=== PATIENT | female | born 1975 | race Caucasian/White ===

== ENCOUNTER 2017-05-22 01:06 | Emergency (ER) | payer OTHER ==
[2017-05-22 02:30] LABS: BASO % 0.3 % (0.0-1.0); HEMATOCRIT 41.6 % (36.0-47.0); HEMOGLOBIN 14.5 g/dl (12.0-16.0); IMMATURE GRANULOCYTE % 0.3 % (0-3.0); LYMPH # 1.5 10^3/uL (1.5-4.5); LYMPH % 13.8 % (24.0-44.0); MEAN CORPUSCULAR HGB CONC 34.9 g/dl (32.0-36.5); MEAN CORPUSCULAR VOLUME 86.1 fl (80.0-96.0); MONO # 0.8 10^3/uL (0.0-0.8); MONO % 7.7 % (0.0-5.0); NEUTROPHILS # 8.5 10^3/uL (1.8-7.7); NEUTROPHILS % 77.9 % (36.0-66.0); PLATELET COUNT, AUTOMATED 289 10^3/uL (150-450); RED BLOOD COUNT 4.83 10^6/uL (4.00-5.40); RED CELL DISTRIBUTION WIDTH 14.5 % (11.5-14.5); WHITE BLOOD COUNT 10.9 10^3/uL (4.0-10.0)
[2017-05-22] MEDS: ONDANSETRON 4MG/2ML VIAL (J2405) IV (02:35)
[2017-05-22] MEDS: MORPHINE 2 MG/ML 1ML SYRINGE (J2270) IV (02:36)
[2017-05-22 02:58] LABS: ALBUMIN 3.4 GM/DL (3.2-5.2); ALBUMIN/GLOBULIN RATIO 0.77 (1.00-1.93); ALKALINE PHOSPHATASE 109 U/L (45-117); ALT/SGPT 26 U/L (12-78); ANION GAP 13 MEQ/L (8-16); AST/SGOT 18 U/L (7-37); BILIRUBIN,DIRECT 0.3 MG/DL (0.0-0.2); BILIRUBIN,TOTAL 0.8 MG/DL (0.2-1.0); BLOOD UREA NITROGEN 8 MG/DL (7-18); CALCIUM LEVEL 8.4 MG/DL (8.5-10.1); CARBON DIOXIDE LEVEL 25 MEQ/L (21-32); CHLORIDE LEVEL 98 MEQ/L (98-107); CREATININE FOR GFR 0.56 MG/DL (0.55-1.30); GLOMERULAR FILTRATION RATE > 60.0 (>60); GLUCOSE, FASTING 124 MG/DL (70-100); LIPASE 82 U/L (73-393); POTASSIUM SERUM 2.9 MEQ/L (3.5-5.1); SODIUM LEVEL 136 MEQ/L (136-145); TOTAL PROTEIN 7.8 GM/DL (6.4-8.2)
[2017-05-22] MEDS: NS 1,000 ML IV (03:02)
[2017-05-22] MEDS ORDERED: KCL 20MEQ IN 100ML SWI (KRUN) 20 MEQ in APPROPRIATE DILUENT 1 EA IV (03:15)
[2017-05-22] MEDS: POTASSIUM CHL PWD 20 MEQ PACKET PO (03:40)
[2017-05-22] MEDS: KCL 10MEQ IN 100ML SWI (KRUN) 10 MEQ in APPROPRIATE DILUENT 1 EA IV ×2 (03:40→04:37)
[2017-05-22] MEDS: POTASSIUM CHLORIDE 10 MEQ SR TABLET PO (05:13)
== END 2017-05-22 05:17 | disposition home or self-care (01) ==
LOC: M ED 01:06
DX: K52.9 Noninfective gastroenteritis and colitis, unspecified (principal); E87.6 Hypokalemia; I10 Essential (primary) hypertension; F32.9 Major depressive disorder, single episode, unspecified; F41.9 Anxiety disorder, unspecified; Z87.891 Personal history of nicotine dependence; Z79.899 Other long term (current) drug therapy
CPT/HCPCS: J2405

== ENCOUNTER 2017-06-06 09:30 | Emergency (ER) | payer OTHER ==
[2017-06-06] MEDS: NS 1,000 ML IV (10:18)
[2017-06-06 10:23] LABS: BASO % 0.3 % (0.0-1.0); HEMATOCRIT 45.2 % (36.0-47.0); HEMOGLOBIN 15.5 g/dl (12.0-16.0); IMMATURE GRANULOCYTE % 0.3 % (0-3.0); LYMPH # 1.7 10^3/uL (1.5-4.5); LYMPH % 17.7 % (24.0-44.0); MEAN CORPUSCULAR HEMOGLOBIN 30.2 pg (27.0-33.0); MEAN CORPUSCULAR HGB CONC 34.3 g/dl (32.0-36.5); MEAN CORPUSCULAR VOLUME 87.9 fl (80.0-96.0); MONO # 0.3 10^3/uL (0.0-0.8); MONO % 3.3 % (0.0-5.0); NEUTROPHILS # 7.5 10^3/uL (1.8-7.7); NEUTROPHILS % 78.4 % (36.0-66.0); PLATELET COUNT, AUTOMATED 391 10^3/uL (150-450); RED BLOOD COUNT 5.14 10^6/uL (4.00-5.40); RED CELL DISTRIBUTION WIDTH 14.6 % (11.5-14.5); WHITE BLOOD COUNT 9.6 10^3/uL (4.0-10.0)
[2017-06-06 10:55] LABS: CONTROL LINE HPYORI INT CTR LINE PRESENT; H PYLORI QUALITATIVE IgG NEGATIVE (NEGATIVE)
[2017-06-06 10:58] LABS: ALBUMIN/GLOBULIN RATIO 0.89 (1.00-1.93); ALKALINE PHOSPHATASE 95 U/L (45-117); ALT/SGPT 39 U/L (12-78); ANION GAP 8 MEQ/L (8-16); AST/SGOT 21 U/L (7-37); BILIRUBIN,TOTAL 0.6 MG/DL (0.2-1.0); BLOOD UREA NITROGEN 10 MG/DL (7-18); CALCIUM LEVEL 9.7 MG/DL (8.5-10.1); CARBON DIOXIDE LEVEL 29 MEQ/L (21-32); CHLORIDE LEVEL 101 MEQ/L (98-107); CREATININE FOR GFR 0.66 MG/DL (0.55-1.30); GLOMERULAR FILTRATION RATE > 60.0 (>60); GLUCOSE, FASTING 140 MG/DL (70-100); POTASSIUM SERUM 3.4 MEQ/L (3.5-5.1); SODIUM LEVEL 138 MEQ/L (136-145); TOTAL PROTEIN 8.5 GM/DL (6.4-8.2)
[2017-06-06] MEDS ORDERED: ISOVUE-370 76% 100ML VIAL (Q9967) As Ordered (11:14)
[2017-06-06] MEDS: ONDANSETRON 4MG/2ML VIAL (J2405) IV (11:21)
[2017-06-06 11:25] LABS: LIPASE 130 U/L (73-393)
[2017-06-09 00:06] LABS: H PYLORI SERUM QUANT IGA <9.0 units (0.0-8.9)
[2017-06-09 00:06] LABS: H PYLORI SERUM QUANT IGM <9.0 units (0.0-8.9)
== END 2017-06-06 12:26 | disposition home or self-care (01) ==
LOC: M ED 09:30
DX: K52.9 Noninfective gastroenteritis and colitis, unspecified (principal); F41.9 Anxiety disorder, unspecified; F33.9 Major depressive disorder, recurrent, unspecified; Z79.899 Other long term (current) drug therapy; Z98.890 Other specified postprocedural states
CPT/HCPCS: J2405

== ENCOUNTER 2018-11-26 08:30 | Emergency (ER) | payer OTHER ==
[~2018-11-26] VITALS: Ht 157.5 cm; Wt 102.0 kg
[~2018-11-26 08:30] MED LIST: AMOX500C PO; COLA50CA3 PO; IBUP80TA PO; LEXA1TAB2 PO; PERC7.5T12 PO; PRENTAB74 PO; XANA0.5T PO; ZOFR4TAB14 PO
[2018-11-26] MEDS ORDERED: OMEP-218 (08:35)
[2018-11-26] MEDS ORDERED: SULF1TAB93 (08:35)
[2018-11-26] MEDS ORDERED: KETOROLAC 30 MG/ML VIAL (J1885) IV ONE (09:30)
[2018-11-26] MEDS ORDERED: NS 1,000 ML IV ONE (09:30)
[2018-11-26 09:43] LABS: BASO % 0.2 % (0.0-1.0); EOS % 0.1 % (0.0-3.0); HEMATOCRIT 47.4 % (36.0-47.0); LYMPH # 2.3 10^3/uL (1.5-4.5); LYMPH % 17.4 % (24.0-44.0); MEAN CORPUSCULAR HEMOGLOBIN 31.1 pg (27.0-33.0); MEAN CORPUSCULAR HGB CONC 33.8 g/dl (32.0-36.5); MONO # 0.7 10^3/uL (0.0-0.8); NEUTROPHILS # 10.3 10^3/uL (1.8-7.7); PLATELET COUNT, AUTOMATED 375 10^3/uL (150-450); RED BLOOD COUNT 5.15 10^6/uL (4.00-5.40); WHITE BLOOD COUNT 13.4 10^3/uL (4.0-10.0)
[2018-11-26 09:57] LABS: BLOOD UREA NITROGEN 8 MG/DL (7-18); C REACTIVE PROTEIN QUANTITATIV 0.82 MG/DL (0.00-0.30); CALCIUM LEVEL 8.9 MG/DL (8.5-10.1); CARBON DIOXIDE LEVEL 25 MEQ/L (21-32); CHLORIDE LEVEL 104 MEQ/L (98-107); CREATININE FOR GFR 0.64 MG/DL (0.55-1.30); GLOMERULAR FILTRATION RATE > 60.0 (>58); GLUCOSE, FASTING 111 MG/DL (70-100); POTASSIUM SERUM 3.2 MEQ/L (3.5-5.1); SODIUM LEVEL 138 MEQ/L (136-145)
[2018-11-26 10:06] LABS: ERYTHROCYTE SEDIMENTATION RATE 15 mm/hr (0-20)
[2018-11-26] MEDS ORDERED: ACETAMINOPHEN 500 MG TAB PO ONE (10:15)
[2018-11-26] MEDS ORDERED: KETO10TAB PO (11:13)
[2018-11-26 11:15] VITALS: BP 170/80
[2018-11-26] MEDS ORDERED: CLIN1GEL22 TOP (11:18)
== END 2018-11-26 11:22 | disposition home or self-care (01) ==
LOC: M ED 08:30
DX: L02.412 Cutaneous abscess of left axilla (principal); L03.112 Cellulitis of left axilla; F41.9 Anxiety disorder, unspecified; Z79.899 Other long term (current) drug therapy; Z79.2 Long term (current) use of antibiotics
CPT/HCPCS: 80048; 83605; 85025; 85652; 86140; 96374; 99284; J1885

== ENCOUNTER 2019-10-02 11:37 | Emergency (ER) | payer OTHER ==
[~2019-10-02] VITALS: Ht 154.9 cm; Wt 116.4 kg
[~2019-10-02 11:37] MED LIST changes: +CLIN1GEL22 TOP; +KETO10TAB PO; +OMEP-218; +SULF1TAB93
[2019-10-02] MEDS ORDERED: KETOROLAC TROMETHAMINE 10 MG TAB PO ONE (12:45)
--- NOTE | 2019-10-02 13:19 | REP ---
Clinical: Nontraumatic left shoulder pain . Technique: Internal rotation, external rotation, and Y view left shoulder . Findings: No acute fracture or dislocation. The acromioclavicular and glenohumeral joints are intact. Sub acromial space is normal. Surrounding soft tissues are unremarkable. Impression: Age-appropriate left shoulder radiographs. If the patient remains symptomatic consider follow-up outpatient MRI for further investigation. Electronically Signed by Jalil Cardozo MD 10/02/2019 01:11 P
[2019-10-02 13:25] VITALS: BP 144/70
--- NOTE | 2019-10-02 16:54 | ECGEPIP ---
[facility] - ED Test Date: 2019-10-02 Pat Name: KATHY JACKSON Department: Room: - Gender: Female [employer]: kg : 1975 Requested By: Rula Hong Order Number: [id number] Reading MD: Rula Hong Measurements Intervals [place] Rate: 85 P: 60 NC: 174 QRS: 15 QRSD: 89 T: 30 QT: 353 QTc: 422 Interpretive Statements SINUS RHYTHM NSTTW abnormalities No prior Electronically Signed on 10-02-2019 16:54:18 EDT by Rula Hong
== END 2019-10-02 13:25 | disposition home or self-care (01) ==
LOC: M ED 11:37
DX: M25.512 Pain in left shoulder (principal); I10 Essential (primary) hypertension; F41.9 Anxiety disorder, unspecified; F32.9 Major depressive disorder, single episode, unspecified; Z79.899 Other long term (current) drug therapy

== ENCOUNTER 2020-03-01 09:43 | Emergency (ER) | payer OTHER ==
[~2020-03-01] VITALS: Ht 154.9 cm; Wt 105.2 kg
[2020-03-01] MEDS ORDERED: AMOX875T2 (10:02)
[2020-03-01] MEDS ORDERED: PERI12LIQ (10:02)
[2020-03-01] MEDS ORDERED: CLIN300C6 (10:02)
[2020-03-01] MEDS ORDERED: IBUP80TA (10:02)
[2020-03-01] MEDS ORDERED: HYDR-3716 (10:02)
[2020-03-01 11:33] LABS: BASO # 0.1 10^3/uL (0.0-0.2); BASO % 0.4 % (0.0-1.0); EOS # 0.3 10^3/uL (0.0-0.5); EOS % 2.5 % (0.0-3.0); HEMATOCRIT 41.8 % (36.0-47.0); HEMOGLOBIN 13.4 g/dl (12.0-15.5); LYMPH # 3.7 10^3/uL (1.5-5.0); LYMPH % 31.6 % (24.0-44.0); MEAN CORPUSCULAR HEMOGLOBIN 31.5 pg (27.0-33.0); MEAN CORPUSCULAR HGB CONC 32.1 g/dl (32.0-36.5); MEAN CORPUSCULAR VOLUME 98.1 fl (80.0-96.0); MONO # 0.6 10^3/uL (0.0-0.8); MONO % 5.3 % (0.0-5.0); NEUTROPHILS # 6.9 10^3/uL (1.5-8.5); NEUTROPHILS % 59.8 % (36.0-66.0); PLATELET COUNT, AUTOMATED 318 10^3/uL (150-450); RED BLOOD COUNT 4.26 10^6/uL (4.00-5.40); WHITE BLOOD COUNT 11.6 10^3/uL (4.0-10.0)
[2020-03-01 11:51] LABS: HCG, SERUM QUALITATIVE NEGATIVE (NEGATIVE)
[2020-03-01] MEDS ORDERED: KETOROLAC 30 MG/ML 1ML VIAL IV ONE (12:00)
[2020-03-01] MEDS ORDERED: ISOVUE-370 76% 100ML VIAL As Ordered ONE (12:07)
[2020-03-01 12:12] LABS: ERYTHROCYTE SEDIMENTATION RATE 13 mm/hr (0-20)
[2020-03-01 13:08] LABS: ALBUMIN 2.7 GM/DL (3.2-5.2); ALT/SGPT 17 U/L (12-78); BILIRUBIN,DIRECT < 0.1 MG/DL (0.0-0.2); BILIRUBIN,TOTAL 0.2 MG/DL (0.2-1.0); BLOOD UREA NITROGEN 18 MG/DL (7-18); C REACTIVE PROTEIN QUANTITATIV 1.76 MG/DL (0.00-0.30); CALCIUM LEVEL 8.1 MG/DL (8.5-10.1); CARBON DIOXIDE LEVEL 29 MEQ/L (21-32); CHLORIDE LEVEL 108 MEQ/L (98-107); CREATININE FOR GFR 0.55 MG/DL (0.55-1.30); GLOMERULAR FILTRATION RATE > 60.0 (>58); GLUCOSE, FASTING 75 MG/DL (70-100); POTASSIUM SERUM 3.8 MEQ/L (3.5-5.1); SODIUM LEVEL 141 MEQ/L (136-145); TOTAL PROTEIN 5.7 GM/DL (6.4-8.2)
--- NOTE | 2020-03-01 13:28 | REP ---
INDICATION: swelling left side of face. COMPARISON: None. TECHNIQUE: Axial noncontrast images from the skull base to the thoracic inlet with coronal and sagittal reformations. FINDINGS: Edematous changes with inflammatory stranding and forming phlegmon is identified overlying the left mandibular body with mild reactive cervical adenopathy. Remainder of the examination appears normal. The osseous structures are intact. The sinuses are well aerated and clear. The bilateral orbits are symmetric and normal. The nasopharynx, oropharynx and hypopharynx appear normal. Retropharyngeal and parapharyngeal spaces are normal. Airway is midline and patent without narrowing or mass/mass effect. IMPRESSION: Infectious/inflammatory swelling with fat stranding and phlegmonous change overlying the left mandibular body. No subcutaneous emphysema. <Electronically signed by Jalil Cardozo > 03/01/20 [id number]
[2020-03-01 13:44] VITALS: BP 130/60
[2020-03-01] MEDS ORDERED: ACETAMINOPH W/CODEINE #3 TAB UD PO ONE (14:00)
[2020-03-01] MEDS ORDERED: ACET1TAB16 PO (14:06)
== END 2020-03-01 14:14 | disposition home or self-care (01) ==
LOC: M ED 09:43
DX: R68.84 Jaw pain (principal); R22.0 Localized swelling, mass and lump, head; I10 Essential (primary) hypertension; F41.9 Anxiety disorder, unspecified; Z79.899 Other long term (current) drug therapy
CPT/HCPCS: 36415; 70491; 80048; 80076; 83605; 84703; 85025; 85652; 86140; 87040; 96374; 99283; J1885; Q9967

== ENCOUNTER → 2020-03-06 | Outpatient (REF) | payer OTHER ==
[~2020-03-06] MED LIST changes: +ACET1TAB16 PO; +AMOX875T2; +CLIN300C6; +HYDR-3716; +IBUP80TA; +PERI12LIQ
== END ==
LOC: M LAB REF 17:23
PROVIDERS: ATTEND Dermatology
DX: L02.91 Cutaneous abscess, unspecified (principal)

== ENCOUNTER 2020-06-13 13:21 | Emergency (ER) | payer OTHER ==
[~2020-06-13] VITALS: Ht 154.9 cm; Wt 104.9 kg
[2020-06-13] MEDS ORDERED: CEPH500C (14:08)
[2020-06-13] MEDS ORDERED: TOBRSUS8 (14:08)
[2020-06-13] MEDS ORDERED: NS 500 ML IV ONE (14:50)
[2020-06-13] MEDS ORDERED: AMPICILLIN SOD/SULBACTAM SOD 3 GM in D5W MINI-BAG PLUS 100 ML IV ONE (14:50)
[2020-06-13] MEDS ORDERED: KETOROLAC 30 MG/ML 1ML VIAL IV ONE (14:55)
[2020-06-13] MEDS ORDERED: TETRACAINE 0.5% OPHTH SOLN 4ML OS ONE (14:55)
[2020-06-13] MEDS ORDERED: FLUORESCEIN OPHTH 1 MG STRIP OS ONE (14:55)
[2020-06-13] MEDS ORDERED: ISOVUE-370 76% 100ML VIAL As Ordered ONE (15:17)
[2020-06-13 15:22] LABS: BASO # 0.1 10^3/uL (0.0-0.2); BASO % 0.5 % (0.0-1.0); EOS # 0.1 10^3/uL (0.0-0.5); EOS % 0.8 % (0.0-3.0); HEMATOCRIT 41.3 % (36.0-47.0); HEMOGLOBIN 13.4 g/dl (12.0-15.5); LYMPH # 3.2 10^3/uL (1.5-5.0); LYMPH % 29.8 % (24.0-44.0); MEAN CORPUSCULAR HEMOGLOBIN 31.5 pg (27.0-33.0); MEAN CORPUSCULAR HGB CONC 32.4 g/dl (32.0-36.5); MEAN CORPUSCULAR VOLUME 96.9 fl (80.0-96.0); MONO # 0.7 10^3/uL (0.0-0.8); MONO % 6.3 % (2.0-8.0); NEUTROPHILS # 6.6 10^3/uL (1.5-8.5); NEUTROPHILS % 62.3 % (36.0-66.0); PLATELET COUNT, AUTOMATED 369 10^3/uL (150-450); RED BLOOD COUNT 4.26 10^6/uL (4.00-5.40); WHITE BLOOD COUNT 10.6 10^3/uL (4.0-10.0)
--- NOTE | 2020-06-13 15:42 | REP ---
INDICATION: swelling supra/infra orbital, drainage, chemosis, severe antonina. COMPARISON: None. TECHNIQUE: Axial contrast-enhanced images through the orbits with coronal and sagittal reformations using 100 cc Isovue 370 intravenous contrast material. FINDINGS: Left periorbital subcutaneous soft tissue swelling/infiltration is appreciated. No drainable collection. There is no intraorbital/intraconal extension of the inflammatory changes. The intraorbital contents including globe, orbital musculature, neurovascular bundle and fat appear normal. IMPRESSION: Left periorbital soft tissue swelling suggesting cellulitis. No orbital cellulitis. No drainable collection or abscess. The globe and intraconal contents are intact and normal. <Electronically signed by Jalil Cardozo > 06/13/20 [id number]
[2020-06-13 15:49] LABS: BLOOD UREA NITROGEN 13 MG/DL (7-18); C REACTIVE PROTEIN QUANTITATIV 0.84 MG/DL (0.00-0.30); CALCIUM LEVEL 8.9 MG/DL (8.5-10.1); CARBON DIOXIDE LEVEL 25 MEQ/L (21-32); CHLORIDE LEVEL 108 MEQ/L (98-107); GLOMERULAR FILTRATION RATE > 60.0 (>58); GLUCOSE, FASTING 77 MG/DL (70-100); POTASSIUM SERUM 4.2 MEQ/L (3.5-5.1); SODIUM LEVEL 138 MEQ/L (136-145)
[2020-06-13 15:57] LABS: ERYTHROCYTE SEDIMENTATION RATE 20 mm/hr (0-20)
[2020-06-13 16:10] VITALS: BP 140/70
[2020-06-13] MEDS ORDERED: KETO10TAB PO (16:17)
== END 2020-06-13 16:25 | disposition home or self-care (01) ==
LOC: M ED 13:21
DX: L03.213 Periorbital cellulitis (principal); I10 Essential (primary) hypertension; Z79.899 Other long term (current) drug therapy
CPT/HCPCS: 70481; 80047; 80048; 85025; 85652; 86140; 96365; 96375; 99284; J1885; Q9967

== ENCOUNTER 2021-08-28 08:34 | Emergency (ER) | payer OTHER ==
[~2021-08-28] VITALS: Ht 152.4 cm; Wt 104.5 kg
[~2021-08-28 08:34] MED LIST changes: -ACET1TAB16 PO; +ACET300T48 PO; +BACTDSTA; +CEPH500C; +CLIN-250; -CLIN300C6; +OMEP-173; -OMEP-218; -SULF1TAB93; +TOBRSUS8
[2021-08-28 10:11] LABS: BASO % 0.4 % (0.0-1.0); EOS % 0.4 % (0.0-3.0); HEMATOCRIT 41.5 % (36.0-47.0); HEMOGLOBIN 13.9 g/dl (12.0-15.5); LYMPH # 2.5 10^3/uL (1.5-5.0); LYMPH % 25.7 % (24.0-44.0); MEAN CORPUSCULAR HEMOGLOBIN 32.3 pg (27.0-33.0); MEAN CORPUSCULAR HGB CONC 33.5 g/dl (32.0-36.5); MEAN CORPUSCULAR VOLUME 96.3 fl (80.0-96.0); MONO # 0.4 10^3/uL (0.0-0.8); NEUTROPHILS # 6.7 10^3/uL (1.5-8.5); NEUTROPHILS % 69.2 % (36.0-66.0); PLATELET COUNT, AUTOMATED 391 10^3/uL (150-450); RED BLOOD COUNT 4.31 10^6/uL (4.00-5.40); WHITE BLOOD COUNT 9.7 10^3/uL (4.0-10.0)
[2021-08-28 10:29] LABS: ERYTHROCYTE SEDIMENTATION RATE 18 mm/hr (0-20)
[2021-08-28 10:32] LABS: BLOOD UREA NITROGEN 11 MG/DL (7-18); C REACTIVE PROTEIN QUANTITATIV 0.37 MG/DL (0.00-0.30); CALCIUM LEVEL 8.6 MG/DL (8.5-10.1); CARBON DIOXIDE LEVEL 28 MEQ/L (21-32); CHLORIDE LEVEL 106 MEQ/L (98-107); CREATININE FOR GFR 0.56 MG/DL (0.55-1.30); GLOMERULAR FILTRATION RATE > 60.0 (>58); GLUCOSE, FASTING 92 MG/DL (70-100); POTASSIUM SERUM 3.5 MEQ/L (3.5-5.1); SODIUM LEVEL 137 MEQ/L (136-145)
[2021-08-28 10:51] LABS: HCG, SERUM QUALITATIVE NEGATIVE (NEGATIVE)
[2021-08-28] MEDS ORDERED: dexameTHASONE 20MG/5ML VIAL (J1100 PER 1MG) IV ONE (11:15)
[2021-08-28] MEDS ORDERED: CLINDAMYCIN 900 MG in IV 1 EA IV ONE (11:15)
[2021-08-28] MEDS ORDERED: NS 1,000 ML IV ONE (11:15)
[2021-08-28] MEDS ORDERED: ISOVUE-370 76% 100ML VIAL As Ordered ONE (11:19)
[2021-08-28] MEDS ORDERED: CLEO300C2 PO (12:43)
[2021-08-28] MEDS ORDERED: ERYT5OIN25 OD (12:44)
[2021-08-28 12:55] VITALS: BP 160/90
== END 2021-08-28 12:57 | disposition home or self-care (01) ==
LOC: M ED 08:34
DX: H00.032 Abscess of right lower eyelid (principal); I10 Essential (primary) hypertension; E78.5 Hyperlipidemia, unspecified; F41.9 Anxiety disorder, unspecified; Z79.899 Other long term (current) drug therapy
CPT/HCPCS: 70487; 80048; 84703; 85025; 85652; 86140; 96365; 96375; 99284; J1100; Q9967

== ENCOUNTER 2021-10-15 07:34 | Emergency (ER) | payer OTHER ==
[~2021-10-15] VITALS: Ht 152.4 cm; Wt 113.8 kg
[~2021-10-15 07:34] MED LIST changes: +CLEO300C2 PO; +ERYT5OIN25 OD
[2021-10-15] MEDS ORDERED: LEXA1TAB2 (07:45)
[2021-10-15] MEDS ORDERED: GABA-1171 (07:45)
[2021-10-15] MEDS ORDERED: LISI10TA22 (07:45)
[2021-10-15] MEDS ORDERED: BACL10TA2 (07:45)
[2021-10-15] MEDS ORDERED: ALPR0.25 (07:45)
[2021-10-15] MEDS ORDERED: predniSONE 20 MG TAB PO ONE (08:05)
[2021-10-15] MEDS ORDERED: PRED10TA2 PO (08:38)
[2021-10-15 08:47] VITALS: BP 130/70
== END 2021-10-15 08:50 | disposition home or self-care (01) ==
LOC: M ED 07:34
DX: M25.511 Pain in right shoulder (principal); I10 Essential (primary) hypertension; Z79.899 Other long term (current) drug therapy
CPT/HCPCS: 73030; 99283; J7512

== ENCOUNTER 2021-12-07 07:45 | Emergency (ER) | payer OTHER ==
[~2021-12-07] VITALS: Ht 154.9 cm; Wt 117.4 kg
[~2021-12-07 07:45] MED LIST changes: +ALPR0.25; +BACL10TA2; +GABA-1171; +LEXA1TAB2; +LISI10TA22; +PRED10TA2 PO
[2021-12-07] MEDS ORDERED: OMEP40CA5 (07:59)
[2021-12-07] MEDS ORDERED: KETOROLAC 30 MG/ML 1ML VIAL IM ONE (09:45)
[2021-12-07 10:03] VITALS: BP 146/92
== END 2021-12-07 10:04 | disposition home or self-care (01) ==
LOC: M ED 07:45
DX: S39.012A Strain of muscle, fascia and tendon of lower back, initial encounter (principal); S99.921A Unspecified injury of right foot, initial encounter; S89.92XA Unspecified injury of left lower leg, initial encounter; W19.XXXA Unspecified fall, initial encounter; Y92.099 Unspecified place in other non-institutional residence as the place of occurrence of the external cause; Z79.899 Other long term (current) drug therapy
CPT/HCPCS: 72110; 73564; 73630; 96372; 99283; J1885

== ENCOUNTER → 2023-10-01 | Outpatient (REF) | payer OTHER ==
[~2023-10-01] MED LIST changes: +OMEP40CA5
== END ==
LOC: M LAB REF 14:08
PROVIDERS: ATTEND Surgery
DX: L72.3 Sebaceous cyst (principal)

== ENCOUNTER 2023-12-24 02:37 | Emergency (ER) | payer OTHER ==
[~2023-12-24] VITALS: Ht 154.9 cm; Wt 100.7 kg
[2023-12-24 03:12] LABS: BASO % 0.2 % (0.0-1.0); EOS # 0.1 10^3/uL (0.0-0.5); EOS % 1.1 % (0.0-3.0); HEMATOCRIT 39.7 % (36.0-47.0); HEMOGLOBIN 13.2 g/dl (12.0-15.5); LYMPH # 2.6 10^3/uL (1.5-5.0); MEAN CORPUSCULAR HEMOGLOBIN 30.8 pg (27.0-33.0); MEAN CORPUSCULAR HGB CONC 33.2 g/dl (32.0-36.5); MEAN CORPUSCULAR VOLUME 92.8 fl (80.0-96.0); MONO # 0.7 10^3/uL (0.0-0.8); MONO % 6.2 % (2.0-8.0); NEUTROPHILS # 8.3 10^3/uL (1.5-8.5); NEUTROPHILS % 70.2 % (36.0-66.0); PLATELET COUNT, AUTOMATED 320 10^3/uL (150-450); RED BLOOD COUNT 4.28 10^6/uL (4.00-5.40); WHITE BLOOD COUNT 11.8 10^3/uL (4.0-10.0)
[2023-12-24 03:41] LABS: ALBUMIN 3.4 G/DL (3.2-5.2); ALKALINE PHOSPHATASE 86 U/L (46-116); ALT/SGPT 12 U/L (7.0-40); AST/SGOT 12 U/L (<34); BILIRUBIN,TOTAL 0.5 MG/DL (0.3-1.2); BLOOD UREA NITROGEN 9 MG/DL (9-23); CALCIUM LEVEL 9.5 MG/DL (8.5-10.1); CARBON DIOXIDE LEVEL 26 MMOL/L (20-31); CHLORIDE LEVEL 105 MMOL/L (98-107); GLOMERULAR FILTRATION RATE > 60.0 (>58); GLUCOSE, FASTING 103 MG/DL (60-100); SODIUM LEVEL 137 MMOL/L (136-145); TOTAL PROTEIN 7.2 G/DL (5.7-8.2)
[2023-12-24] MEDS: LIDOCAINE W/EPINEPHRINE 1% 20ML VIAL SC ONE (07:40)
[2023-12-24] MEDS: ceFAZolin SOD 2 GM in IV 1 EA IV ONE (08:08)
[2023-12-24] MEDS: KETOROLAC 30 MG/ML 1ML VIAL IV ONE (08:09)
[2023-12-24 08:31] VITALS: BP 177/77; O2SAT 96
[2023-12-24] MEDS ORDERED: DOXY-323 PO (08:44)
[2023-12-24] MEDS ORDERED: CEPH500C PO (08:44)
[2023-12-24] MEDS: DOXYCYCLINE HYCLATE 100MG TABLET PO ONE (08:54)
[2023-12-24 08:58] VITALS: TEMP 97.5
== END 2023-12-24 09:02 | disposition home or self-care (01) ==
LOC: EEVIPCON 02:37 → M ED 02:37
DX: L03.211 Cellulitis of face (principal); L02.811 Cutaneous abscess of head [any part, except face]; I10 Essential (primary) hypertension; K21.9 Gastro-esophageal reflux disease without esophagitis; F41.9 Anxiety disorder, unspecified; F17.200 Nicotine dependence, unspecified, uncomplicated; Z79.2 Long term (current) use of antibiotics; Z79.811 Long term (current) use of aromatase inhibitors; Z79.899 Other long term (current) drug therapy
CPT/HCPCS: 80053; 85025; 86140; 87040; 87070; 87077; 87186; 87205; 96365; 96375; 99284; J0690; J1885

== ENCOUNTER 2024-02-25 09:50 | Emergency (ER) | payer OTHER ==
[~2024-02-25] VITALS: Ht 152.4 cm; Wt 95.5 kg
[~2024-02-25 09:50] MED LIST changes: +CEPH500C PO; +DOXY-441 PO
[2024-02-25] MEDS: IBUPROFEN 600MG TAB PO ONE (11:46)
[2024-02-25] MEDS ORDERED: BUPR15TASR PO (11:54)
[2024-02-25 14:08] VITALS: BP 158/74; TEMP 97.9; O2SAT 98
== END 2024-02-25 14:12 | disposition home or self-care (01) ==
LOC: M ED 09:50
DX: M79.672 Pain in left foot (principal); F41.9 Anxiety disorder, unspecified; F32.A Depression, unspecified; Z79.899 Other long term (current) drug therapy